=== PATIENT | male | born 1975 | race African-American/Black ===

== ENCOUNTER 2021-01-21 21:26 | Inpatient (IN) | payer BC ==
[2021-01-21] MEDS ORDERED: Ondansetron PF 4 MG/2 ML Vial ONE (22:12)
[2021-01-21 22:23] LABS: Hemoglobin 14.9 g/dL (13.5-17.5); Mean Corpuscular HGB CONC 33.1 g/dL (32.0-36.0); Mean Corpuscular Hemoglobin 30.8 pg (27.0-33.0); Mean Corpuscular Volume 93.2 fl (81.2-95.1); Mean Platelet Volume 9.4 fl (7.4-10.4); Platelet Count 449 10x3/uL (150-450); RBC Distribution Width 13.8 % (11.5-14.5); Red Blood Cell (RBC) Count 4.83 10x6/uL (4.32-5.72); White Blood Cell (WBC) Count 22.6 10x3/uL (3.5-10.5)
[2021-01-21 22:28] LABS: ALT (SGPT) 45 U/L (8-55); AST (SGOT) 31 U/L (5-34); Albumin 4.7 g/dL (3.5-5.0); Alkaline Phosphatase 86 U/L (40-110); Anion Gap 16 mmol/L (10-20); BUN (Urea Nitrogen) 11 mg/dL (8.9-20.6); Bilirubin, Total 0.8 mg/dL (0.2-1.2); Calc. Creatinine Clearance 0 mL/min (70-130); Calcium 10.1 mg/dL (7.8-10.44); Carbon Dioxide 26 mmol/L (22-29); Chloride 104 mmol/L (98-107); Globulin 3.8 g/dL (2.4-3.5); Glucose 136 mg/dL (70-105); Lipase 23 U/L (8-78); Protein, Total 8.5 g/dL (6.0-8.3); Sodium 142 mmol/L (136-145)
[2021-01-21 23:00] LABS: Band 3 % (5-11); Lymphocytes 14 % (21-51); Monocytes 4 % (0-10); Neutrophil 76 % (42-75); Reactive Lymphocytes 3 % (0-10)
[2021-01-21 23:01] LABS: Large Platelets MODERATE; Platelet Clumps SLIGHT; Platelet Morphology Comment Appears Increased
[2021-01-21 23:02] LABS: MDiff Complete? YES; Manual Diff?? YES
[2021-01-21 23:03] LABS: RBC Morphology Normal
[2021-01-21 23:22] LABS: SARS-CoV-2 NAA Rapid Test Not Detected (NotDetected)
[2021-01-21] MEDS ORDERED: Calcium Carbonate 500 MG ChewTAB PO PRN (23:51)
[2021-01-21] MEDS ORDERED: Ondansetron PF 4 MG/2 ML Vial IVP PRN (23:51)
[2021-01-21] MEDS ORDERED: Senokot S 8.6-50 MG TAB PO PRN (23:51)
[2021-01-21] MEDS ORDERED: Guaifenesin DM 100-10/5 ML UDCUP PO PRN (23:51)
[2021-01-21] MEDS ORDERED: HYDROcodone/Acetaminophen 5/325 mg Tablet PO PRN (23:51)
[2021-01-21] MEDS ORDERED: Morphine 2 MG/ML SYRINGE SLOW IVP PRN (23:53)
[2021-01-21] MEDS ORDERED: metroNIDAZOLE 500 MG/100 ML BAG ONE (23:56)
[2021-01-22] MEDS ORDERED: Ondansetron PF 4 MG/2 ML Vial ONE (01:40)
[2021-01-22] MEDS ORDERED: Morphine 2 MG/ML VIAL ONE (02:28)
[2021-01-22] MEDS ORDERED: Sodium Chloride 0.9% 1,000 ML IV SCH (03:00)
[2021-01-22 03:47] LABS: Bilirubin Neg (Negative); Blood, Urine Negative (Negative); Clarity Clear (Clear); Glucose, Urine (Dipstick) Normal (Negative); Ketone, Urine 50 mg/dL (Negative); Leukocyte Negative (Negative); Nitrite Negative (Negative); Protein, Urine (Dipstick) 15 mg/dl (Neg-Trace); Urobilinogen Normal mg/dL (Less than 2)
[2021-01-22] MEDS ORDERED: Levofloxacin 500 mg/D5W 100 ml Premix Bag ONE (04:40)
[2021-01-22] MEDS ORDERED: metroNIDAZOLE 500 MG/100 ML BAG ONE ×2 (04:40→13:23)
[2021-01-22] MEDS: metroNIDAZOLE 500 MG in Premix Bag 1 BAG IVPB SCH ×3 (06:39→21:16)
[2021-01-22 06:52] LABS: #Monocytes 0.6 10x3/uL (0.0-1.1); #Neutrophils 16.1 10x3/uL (1.5-8.4); %Basophils 0.2 % (0.0-2.0); %Neutrophils 87.3 % (40.0-75.0); Hemoglobin 13.9 g/dL (13.5-17.5); Mean Corpuscular HGB CONC 33.6 g/dL (32.0-36.0); Mean Corpuscular Hemoglobin 31.4 pg (27.0-33.0); Mean Corpuscular Volume 93.7 fl (81.2-95.1); Mean Platelet Volume 9.6 fl (7.4-10.4); Platelet Count 376 10x3/uL (150-450); RBC Distribution Width 13.9 % (11.5-14.5); Red Blood Cell (RBC) Count 4.42 10x6/uL (4.32-5.72); White Blood Cell (WBC) Count 18.5 10x3/uL (3.5-10.5)
[2021-01-22 07:15] LABS: Anion Gap 14 mmol/L (10-20); BUN (Urea Nitrogen) 11 mg/dL (8.9-20.6); Calc. Creatinine Clearance 0 mL/min (70-130); Calcium 9.2 mg/dL (7.8-10.44); Carbon Dioxide 22 mmol/L (22-29); Chloride 109 mmol/L (98-107); Glucose 110 mg/dL (70-105); Potassium 3.9 mmol/L (3.5-5.1); Sodium 141 mmol/L (136-145)
[2021-01-22 08:17] LABS: Lactic Acid 0.6 mmol/L (0.5-2.2)
[2021-01-22] MEDS ORDERED: Famotidine/PF 20 mg/2ml Vial ONE (09:01)
[2021-01-22] MEDS ORDERED: Thiamine 100 MG TAB ONE (09:05)
[2021-01-22] MEDS ORDERED: Enoxaparin Sodium 40 MG/0.4 ML SYRINGE ONE (09:06)
[2021-01-22] MEDS ORDERED: Folic Acid 1 MG TAB ONE (09:06)
[2021-01-22] MEDS: Folic Acid 1 MG TAB PO SCH (10:00)
[2021-01-22] MEDS: Thiamine 100 MG TAB PO SCH (10:00)
[2021-01-22] MEDS: Losartan 25 MG TAB PO SCH (10:00)
[2021-01-22] MEDS: Famotidine/PF 20 mg/2ml Vial SLOW IVP SCH ×2 (10:00→20:34)
[2021-01-22] MEDS: Enoxaparin Sodium 40 MG/0.4 ML SYRINGE SC SCH (10:00)
[2021-01-22] MEDS: Nicotine 21 MG PATCH TD SCH (10:18)
[2021-01-22 16:03] VITALS: BMI 26.6
[2021-01-22] MEDS: Atorvastatin Calcium 10 MG TAB PO SCH (20:33)
[2021-01-22] MEDS ORDERED: Saccharomyces boulardii 250 MG CAP PO SCH (23:15)
[2021-01-22] MEDS: Zolpidem Tartrate 5 MG TAB PO PRN (23:57)
[2021-01-23] MEDS: metroNIDAZOLE 500 MG in Premix Bag 1 BAG IVPB SCH ×3 (05:06→22:35)
[2021-01-23 05:34] LABS: #Basophils 0.1 10x3/uL (0.0-0.2); #Eosinphils 0.2 10x3/uL (0.0-0.5); #Monocytes 0.7 10x3/uL (0.0-1.1); %Basophils 0.5 % (0.0-2.0); %Eosinophils 1.2 % (0.0-6.0); %Lymphocytes 22.4 % (18.0-47.0); %Monocytes 5.8 % (0.0-10.0); %Neutrophils 69.8 % (40.0-75.0); Hemoglobin 12.6 g/dL (13.5-17.5); Mean Corpuscular HGB CONC 32.8 g/dL (32.0-36.0); Mean Corpuscular Hemoglobin 30.5 pg (27.0-33.0); Mean Platelet Volume 9.5 fl (7.4-10.4); Platelet Count 331 10x3/uL (150-450); RBC Distribution Width 13.8 % (11.5-14.5); Red Blood Cell (RBC) Count 4.13 10x6/uL (4.32-5.72); White Blood Cell (WBC) Count 12.9 10x3/uL (3.5-10.5)
[2021-01-23 05:37] LABS: Anion Gap 11 mmol/L (10-20); BUN (Urea Nitrogen) 10 mg/dL (8.9-20.6); Calc. Creatinine Clearance 131 mL/min (70-130); Calcium 8.2 mg/dL (7.8-10.44); Carbon Dioxide 23 mmol/L (22-29); Chloride 107 mmol/L (98-107); Glucose 91 mg/dL (70-105); Potassium 3.5 mmol/L (3.5-5.1); Sodium 137 mmol/L (136-145)
[2021-01-23] MEDS: Enoxaparin Sodium 40 MG/0.4 ML SYRINGE SC SCH (09:18)
[2021-01-23] MEDS: Nicotine 21 MG PATCH TD SCH (09:18)
[2021-01-23] MEDS: Thiamine 100 MG TAB PO SCH (09:19)
[2021-01-23] MEDS: Losartan 25 MG TAB PO SCH (09:19)
[2021-01-23] MEDS: Folic Acid 1 MG TAB PO SCH (09:19)
[2021-01-23] MEDS: Saccharomyces boulardii 250 MG CAP PO SCH (09:19)
[2021-01-23] MEDS: Famotidine/PF 20 mg/2ml Vial SLOW IVP SCH ×2 (09:19→20:31)
[2021-01-23] MEDS ORDERED: Hydrochlorothiazide 25 MG TAB PO SCH (16:15)
[2021-01-23] MEDS: Acetaminophen 325 MG TAB PO PRN (16:31)
[2021-01-23] MEDS: Atorvastatin Calcium 10 MG TAB PO SCH (20:32)
[2021-01-24] MEDS: Zolpidem Tartrate 5 MG TAB PO PRN ×2 (00:19→20:50)
[2021-01-24 05:07] LABS: #Basophils 0.1 10x3/uL (0.0-0.2); #Eosinphils 0.2 10x3/uL (0.0-0.5); #Monocytes 0.7 10x3/uL (0.0-1.1); #Neutrophils 6.6 10x3/uL (1.5-8.4); %Basophils 0.5 % (0.0-2.0); %Eosinophils 1.6 % (0.0-6.0); %Lymphocytes 26.6 % (18.0-47.0); %Monocytes 6.5 % (0.0-10.0); %Neutrophils 64.4 % (40.0-75.0); Hemoglobin 13.2 g/dL (13.5-17.5); Mean Corpuscular HGB CONC 34.2 g/dL (32.0-36.0); Mean Corpuscular Hemoglobin 31.4 pg (27.0-33.0); Mean Corpuscular Volume 91.7 fl (81.2-95.1); Mean Platelet Volume 9.2 fl (7.4-10.4); Platelet Count 306 10x3/uL (150-450); RBC Distribution Width 13.2 % (11.5-14.5); Red Blood Cell (RBC) Count 4.21 10x6/uL (4.32-5.72); White Blood Cell (WBC) Count 10.3 10x3/uL (3.5-10.5)
[2021-01-24 05:14] LABS: Anion Gap 11 mmol/L (10-20); BUN (Urea Nitrogen) 7 mg/dL (8.9-20.6); Calc. Creatinine Clearance 134 mL/min (70-130); Calcium 8.6 mg/dL (7.8-10.44); Carbon Dioxide 23 mmol/L (22-29); Chloride 108 mmol/L (98-107); Glucose 90 mg/dL (70-105); Potassium 3.5 mmol/L (3.5-5.1); Sodium 138 mmol/L (136-145)
[2021-01-24] MEDS: metroNIDAZOLE 500 MG in Premix Bag 1 BAG IVPB SCH ×2 (05:51→14:14)
[2021-01-24] MEDS: Enoxaparin Sodium 40 MG/0.4 ML SYRINGE SC SCH (08:00)
[2021-01-24] MEDS: Famotidine/PF 20 mg/2ml Vial SLOW IVP SCH ×2 (08:01→20:43)
[2021-01-24] MEDS: Thiamine 100 MG TAB PO SCH (08:01)
[2021-01-24] MEDS: Acetaminophen 325 MG TAB PO PRN ×2 (08:02→14:14)
[2021-01-24] MEDS: Losartan 25 MG TAB PO SCH (08:02)
[2021-01-24] MEDS: Saccharomyces boulardii 250 MG CAP PO SCH (08:02)
[2021-01-24] MEDS: Folic Acid 1 MG TAB PO SCH (08:02)
[2021-01-24] MEDS: Nicotine 21 MG PATCH TD SCH (08:15)
[2021-01-24] MEDS ORDERED: Hydrochlorothiazide 25 MG TAB PO SCH ×2 (09:00→17:15)
[2021-01-24] MEDS: metroNIDAZOLE 500 MG TAB PO SCH ×2 (16:05→20:43)
[2021-01-24] MEDS: Atorvastatin Calcium 10 MG TAB PO SCH (20:42)
[2021-01-24] MEDS: Ciprofloxacin 500 MG TAB PO SCH (20:42)
[2021-01-25 05:28] LABS: #Basophils 0.1 10x3/uL (0.0-0.2); #Eosinphils 0.2 10x3/uL (0.0-0.5); #Monocytes 0.6 10x3/uL (0.0-1.1); #Neutrophils 5.8 10x3/uL (1.5-8.4); %Basophils 0.5 % (0.0-2.0); %Eosinophils 1.7 % (0.0-6.0); %Lymphocytes 30.6 % (18.0-47.0); %Monocytes 6.6 % (0.0-10.0); %Neutrophils 60.2 % (40.0-75.0); Hemoglobin 13.5 g/dL (13.5-17.5); Mean Corpuscular HGB CONC 34.2 g/dL (32.0-36.0); Mean Corpuscular Hemoglobin 31.1 pg (27.0-33.0); Platelet Count 339 10x3/uL (150-450); RBC Distribution Width 13.1 % (11.5-14.5); Red Blood Cell (RBC) Count 4.34 10x6/uL (4.32-5.72); White Blood Cell (WBC) Count 9.6 10x3/uL (3.5-10.5)
[2021-01-25 05:51] LABS: Anion Gap 17 mmol/L (10-20); BUN (Urea Nitrogen) 9 mg/dL (8.9-20.6); Calc. Creatinine Clearance 129 mL/min (70-130); Calcium 9.3 mg/dL (7.8-10.44); Carbon Dioxide 21 mmol/L (22-29); Chloride 104 mmol/L (98-107); Glucose 78 mg/dL (70-105); Potassium 3.8 mmol/L (3.5-5.1); Sodium 138 mmol/L (136-145)
[2021-01-25 08:22] VITALS: BP 126/84; TEMP 98.3
[2021-01-25] MEDS: Folic Acid 1 MG TAB PO SCH (08:56)
[2021-01-25] MEDS: Losartan 25 MG TAB PO SCH (08:56)
[2021-01-25] MEDS: Thiamine 100 MG TAB PO SCH (08:56)
[2021-01-25] MEDS: Ciprofloxacin 500 MG TAB PO SCH (08:56)
[2021-01-25] MEDS: Saccharomyces boulardii 250 MG CAP PO SCH (08:57)
[2021-01-25] MEDS: Famotidine/PF 20 mg/2ml Vial SLOW IVP SCH (08:57)
[2021-01-25] MEDS: metroNIDAZOLE 500 MG TAB PO SCH (08:57)
[2021-01-25] MEDS: Acetaminophen 325 MG TAB PO PRN (08:57)
[2021-01-25] MEDS: Enoxaparin Sodium 40 MG/0.4 ML SYRINGE SC SCH (08:58)
[2021-01-25] MEDS ORDERED: Hydrochlorothiazide 25 MG TAB PO SCH (09:00)
[2021-01-25] MEDS: Nicotine 21 MG PATCH TD SCH (10:08)
== END 2021-01-25 10:31 | disposition home or self-care (01) | DRG 872 ==
LOC: CSHERS 21:26 → CSHERHOLD 23:51 → UNDOADMIN 01-22 01:52 → CSHERHOLD 01-22 01:52 → CSHTELE 01-22 14:51
PROVIDERS: ADMIT Student in an Organized Health Care Education/Training Program; ATTEND Family Medicine
DX: A41.9 Sepsis, unspecified organism (principal); K57.20 Diverticulitis of large intestine with perforation and abscess without bleeding; Z20.822 Contact with and (suspected) exposure to COVID-19; I10 Essential (primary) hypertension; Z71.6 Tobacco abuse counseling; F17.210 Nicotine dependence, cigarettes, uncomplicated; K59.09 Other constipation; E78.2 Mixed hyperlipidemia; Z72.89 Other problems related to lifestyle; E86.0 Dehydration; Z79.82 Long term (current) use of aspirin; Z79.899 Other long term (current) drug therapy
CPT/HCPCS: 36415; 71045; 74177; 80048; 80053; 81003; 83605; 83690; 83735; 84443; 85025; 93005; 96365; 96375; J1650; J1956; J2270; J2405; S0028; U0002